=== PATIENT | male | born 1960 | race Caucasian/White ===

== ENCOUNTER 2019-05-14 15:46 | Emergency (ER) | payer BC ==
--- NOTE | 2019-05-14 16:22 | EDM.PDOC ---
ED HPI GENERAL MEDICAL PROBLEM - General Chief Complaint: General Stated Complaint: SOB DIZZY Time Seen by Provider: 05/14/19 16:10 Source of Information: Reports: Patient, Family. Denies: Detention Records History Limitations: Reports: No Limitations - History of Present Illness INITIAL COMMENTS - FREE TEXT/NARRATIVE: Patient states he has been up and moving furniture around the house today since about 9 this morning states about hour and a half ago while bending down to unhook the water line from the refrigerator when he stood up he got dizzy with shortness of breath and numbness all over he states now the numbness is just in his hands bilateral He states the dizziness lasted about 5 to 10 minutes shortness of breath is gotten better and almost resolved but the numbness is still ongoing in the hands but is now down to third fourth and fifth digits of both hands He denies any chest pain nausea vomiting headache vision changes disorientation weakness He does have a history of panic attacks that presented kind of this way the last when he had his been about a year ago States he only takes medicine for depression he has no cardiac risk factors no family history of risk factors Duration: Hour(s): Quality: Reports: Other (No pain whatsoever) - Related Data Allergies Allergy/AdvReac Type Severity Reaction Status Date / Time meperidine HCl [From Demerol] Allergy Nausea and Verified 05/14/19 16:48 Vomiting Home Meds: Home Meds Citalopram Hydrobromide [Celexa] 40 mg PO DAILY 03/29/14 [History] Meloxicam [Mobic] 15 mg PO DAILY 03/29/14 [History] Methylphenidate [Ritalin] 20 mg PO BID 03/29/14 [History] QUEtiapine [SEROquel] 200 mg PO BEDTIME 03/29/14 [History] Cyclobenzaprine [Flexeril] 10 mg PO TID PRN 05/14/19 [History] atorvaSTATin [Lipitor] 10 mg PO BEDTIME 05/14/19 [History] Social & Family History - Living Situation & Occupation Living situation: Reports: , with Family Occupation: Employed ED ROS GENERAL - Review of Systems Review Of Systems: See Below Constitutional: Denies: Fever, Chills, Malaise, Weakness, Fatigue, Night Sweats , Diaphoresis, Decreased Appetite, Weight Loss HEENT: Reports: No Symptoms Respiratory: Reports: Shortness of Breath Cardiovascular: Reports: Lightheadedness. Denies: Chest Pain, Blood Pressure Problem, Claudication, Dyspnea on Exertion, Edema, Orthopnea, Palpitations, Syncope Endocrine: Reports: No Symptoms GI/Abdominal: Reports: No Symptoms : Reports: No Symptoms Musculoskeletal: Reports: No Symptoms Skin: Reports: No Symptoms Neurological: Reports: Dizziness, Numbness, Tingling. Denies: Confusion, Headache, Paresthesia, Pre-Existing Deficit, Seizure, Syncope, Trouble Speaking , Difficulty Walking, Weakness Psychiatric: Reports: No Symptoms Hematologic/Lymphatic: Reports: No Symptoms Immunologic: Reports: No Symptoms Free Text/Narrative/Comment: He denies any extremity weakness facial weakness or numbness trouble with speech no signs or symptoms of a TIA ED EXAM, DIZZINESS - Physical Exam Exam: See Below Exam Limited By: No Limitations General Appearance: Alert, WD/WN, No Apparent Distress Eye Exam: Bilateral Eye: EOMI, PERRL Nystagmus: No: worsens with head to L, worsens with head to R, reproducible Ears: Normal External Exam, Normal Canal, Hearing Grossly Normal, Normal TMs Nose: Normal Inspection, Normal Mucosa, No Blood Throat/Mouth: Normal Inspection, Normal Lips, Normal Teeth, Normal Gums, Normal Oropharynx, Normal Voice, No Airway Compromise Head Exam: Atraumatic, Normocephalic Neck: Normal Inspection, Supple, Non-Tender, Full Range of Motion. No: Carotid Bruit Respiratory/Chest: No Respiratory Distress, Lungs Clear, Normal Breath Sounds, No Accessory Muscle Use, Chest Non-Tender Cardiovascular: Normal Peripheral Pulses, Regular Rate, Rhythm, No Edema, No Gallop, No JVD, No Murmur, No Rub GI/Abdominal: Normal Bowel Sounds, Soft, Non-Tender, No Organomegaly, No Distention. No: Guarding, Rigid, Rebound, Tender, Abnormal Bowel Sounds Neurological: Alert, Normal Mood/Affect, Normal Dorsiflexion, CN II-XII Intact, Normal Gait, Normal Reflexes, No Motor/Sensory Deficits, Oriented x 3, Other ( Patient has 5 of 5 upper extremity lower extremity strength equal tie puller bilateral normal soft touch equal sensation the upper extremities he has normal a graphesthesia 2+ DTR bilateral) Back Exam: Normal Inspection, Full Range of Motion Extremities: Normal Inspection, Normal Range of Motion, Non-Tender, No Pedal Edema, Normal Capillary Refill Psychiatric: Normal Affect, Normal Mood, Other (Seems mildly anxious) Skin Exam: Warm, Intact, Normal Color, No Rash Course - Vital Signs Text/Narrative:: CBC BMP troponin EKG Vital signs are within normal limits he is satting 100% on room air hr 57 All labs within normal limits Spoke with Dr. DUNCAN cardiology at [place] with an over read of the EKG she sees no acute findings with presentation does not sound cardiac Recheck patient states he feels 100% normal he is okay with diagnosis treatment and discharged home states he will follow-up with his primary care provider he understands the need to return to the emergency room if anything changes or gets worse all vital signs are within normal limits Last Recorded V/S: Last Vital Signs Temp 36.7 C 05/14/19 15:48 Pulse 57 L 05/14/19 15:48 Resp 32 H 05/14/19 15:48 BP 158/78 H 05/14/19 15:48 Pulse Ox 100 05/14/19 15:48 - Orders/Labs/Meds Labs: Laboratory Tests 05/14/19 05/14/19 05/14/19 Range/Units 16:08 16:25 16:25 WBC 7.2 (4.0-10.0) x10^3/uL RBC 4.70 (4.5-6.0) x10^6/uL Hgb 14.1 (14.0-18.0) g/dL Hct 41.4 (40.0-52.0) % MCV 88.1 (78.0-93.0) fL MCH 30.0 (26.0-32.0) pg MCHC 34.1 (32.0-36.0) g/dL RDW Coeff of Sammi 13.0 (10.0-15.0) % Plt Count 177 (130-400) x10^3/uL Neut % (Auto) 73.4 (50.0-80.0) % Lymph % (Auto) 21.4 L (25.0-50.0) % Brule % (Auto) 4.7 (2.0-11.0) % Eos % (Auto) 0.4 (0.0-4.0) % Baso % (Auto) 0.1 L (0.2-1.2) % Sodium 142 (136-145) mmol/L Potassium 4.1 (3.5-5.1) mmol/L Chloride 104 (98-107) mmol/L Carbon Dioxide 24 (21-32) mmol/L Anion Gap 18.1 (10-20) mmol/L BUN 15 (7-18) mg/dL Creatinine 1.3 (0.70-1.30) mg/dL Est Cr Clr Drug Dosing TNP Estimated GFR (MDRD) 56 Glucose 111 H (74-106) mg/dL POC Glucose 108 H (74-106) mg/dL Calcium 8.7 (8.5-10.1) mg/dL Troponin I < 0.017 (<=0.056) ng/mL Departure - Departure Time of Disposition: 17:45 Disposition: Home, Self-Care 01 Condition: Good Clinical Impression: Dizzinesses - Discharge Information *PRESCRIPTION DRUG MONITORING PROGRAM REVIEWED*: No *COPY OF PRESCRIPTION DRUG MONITORING REPORT IN PATIENT CHAPO: No Referrals: Allison Callahan PA-C [Primary Care Provider] - Forms: ED Department Discharge Sepsis Event Note - Focused Exam Vital Signs: Vital Signs Temp Pulse Resp BP Pulse Ox 05/14/19 15:48 36.7 C 57 L 32 H 158/78 H 100 Date Exam was Performed: 05/14/19 Time Exam was Performed: 17:47 - Problem List & Annotations (1) Dizzinesses SNOMED Code(s): 480104830, 789747251 Code(s): R42 - DIZZINESS AND GIDDINESS Status: Acute Current Visit: Yes (2) SOB (shortness of breath) SNOMED Code(s): 900872193 Code(s): R06.02 - SHORTNESS OF BREATH Status: Acute Current Visit: Yes
[2019-05-14 16:52] LABS: ANION GAP 18.1 mmol/L (10-20); CHLORIDE,CL 104 mmol/L (98-107); SODIUM,NA 142 mmol/L (136-145)
== END 2019-05-14 17:57 | disposition home or self-care (01) ==
LOC: VM.ED 15:46
DX: R42 Dizziness and giddiness (principal); Z88.8 Allergy status to other drugs, medicaments and biological substances
CPT/HCPCS: 36415; 80048; 82962; 84484; 85025; 93005; 99285-25

== ENCOUNTER 2019-09-22 09:08 | Day surgery (SDC) | payer BC, OTHER ==
[~2019-09-22 09:08] MED LIST: Lactated Ringers 1,000 ML IV SCH
[2019-09-22] MEDS ORDERED: fentaNYL 100 MCG/2 ML SDV ONE (10:10)
[2019-09-22] MEDS ORDERED: Propofol 200 MG/20 ML SDV ONE ×3 (10:10→11:42)
--- NOTE | 2019-09-23 17:59 | OR ---
PRE-OPERATIVE DIAGNOSES: 1. Positive family history of colon cancer in both parents and 2 brothers. 2. Personal history of colon polyps. His last colonoscopy done 5 years ago was normal. POST-OPERATIVE DIAGNOSES: 1. 2 small polyps removed using cold forceps. a. 2 mm and 3 mm cecal polyps. 2. Moderate left-sided diverticulosis. 3. Normal-appearing distal ileum. PROCEDURE: Colonoscopy with polypectomy x2 using cold forceps. ANESTHESIA: Monitored anesthesia care. BOWEL PREP: Good. Catarino is a 59-year-old male who was brought to the endoscopy suite after discussing risks and benefits of the procedure. Informed consent was obtained for conscious sedation and colonoscopy with or without biopsy and/or polypectomy. We also discussed possibility of missed lesions. Pre-procedure exam was unremarkable. IV, oxygen, and monitors were placed. The patient was placed in the left lateral decubitus position. Sedation was administered and a digital rectal exam was performed and was unremarkable. Colonoscope was passed into the rectum and slowly advanced all the way to the cecum. Cecum was viewed and photographed. There was 2 mm and 3 mm polyps located within the cecum. These were removed using cold forceps. The ileocecal valve was intubated and distal ileum was normal in appearance. The colonoscope was slowly withdrawn and the mucosa was closely observed in a direct circumferential manner. The ascending colon was unremarkable. The transverse colon was unremarkable. The descending and sigmoid colon revealed moderate diverticulosis. Retroflexion was performed, rectal mucosa unremarkable. Scope was removed. The patient tolerated the procedure well. The patient was monitored until that baseline status. Discharge instructions were reviewed and the patient was discharged in good condition. COMPLICATIONS: None. TOTAL TIME: 19 minutes. ESTIMATED BLOOD LOSS: Less than 1 mL. RECOMMENDATIONS/FOLLOW-UP: We will await results of path report to determine ideal followup interval. I would like to kindly thank Allison Callahan for this referral. DMB: 09/22/2019 13:31:49 MODL: 09/22/2019 18:49:23 /[id number]
== END 2019-09-22 13:25 | disposition home or self-care (01) ==
LOC: VM.SDS 09:08
PROVIDERS: ATTEND Family Medicine
DX: Z12.11 Encounter for screening for malignant neoplasm of colon (principal); D12.0 Benign neoplasm of cecum; K57.30 Diverticulosis of large intestine without perforation or abscess without bleeding; E66.9 Obesity, unspecified; Z11.59 Encounter for screening for other viral diseases; F33.1 Major depressive disorder, recurrent, moderate; F90.9 Attention-deficit hyperactivity disorder, unspecified type; Z88.5 Allergy status to narcotic agent; Z80.0 Family history of malignant neoplasm of digestive organs; Z86.010 Personal history of colon polyps; Z98.890 Other specified postprocedural states; Z87.891 Personal history of nicotine dependence; Z68.41 Body mass index [BMI] 40.0-44.9, adult
CPT/HCPCS: 45380; 87635; J2704; J3010; J7120; U0002

== ENCOUNTER 2024-09-01 08:24 | Day surgery (SDC) | payer BC ==
[2024-09-01] MEDS: Lactated Ringers 1,000 ML IV SCH (08:48)
[2024-09-01] MEDS ORDERED: Propofol 200 MG/20 ML SDV ONE (09:25)
[2024-09-01] MEDS ORDERED: fentaNYL 100 MCG/2 ML SDV ONE (09:25)
== END 2024-09-01 12:44 | disposition home or self-care (01) ==
LOC: VM.SDS 08:24
PROVIDERS: ATTEND Family Medicine
DX: Z12.11 Encounter for screening for malignant neoplasm of colon (principal); D12.6 Benign neoplasm of colon, unspecified; K63.5 Polyp of colon; K57.30 Diverticulosis of large intestine without perforation or abscess without bleeding; Z86.0101 Personal history of adenomatous and serrated colon polyps; Z80.0 Family history of malignant neoplasm of digestive organs; F33.1 Major depressive disorder, recurrent, moderate; F90.0 Attention-deficit hyperactivity disorder, predominantly inattentive type; Z87.891 Personal history of nicotine dependence; Z79.899 Other long term (current) drug therapy
CPT/HCPCS: 00811; J2704; J3010; J7120